=== PATIENT | female | born 1970 | race Caucasian/White ===

== ENCOUNTER 2017-02-25 13:11 | Emergency (ER) | payer OTHER ==
[~2017-02-25] VITALS: Ht 167.6 cm; Wt 81.7 kg
[2017-02-25] MEDS ORDERED: RACEPINEPHRINE 2.25% NEBU SOLN 0.5 ML VIAL INH STA (13:30)
[2017-02-25] MEDS ORDERED: DEXAMETHASONE INJ 10 MG in SYRINGE 0 ML IV STA (13:30)
[2017-02-25 13:35] VITALS: TEMP 36.9; Ht 167.6 cm; Wt 81.7 kg
--- NOTE | 2017-02-25 13:56 | DIAGNOSTIC IMAGING REPORT ---
SINGLE VIEW CHEST CLINICAL HISTORY: Cough and dyspnea. FINDINGS: An AP, portable, upright chest radiograph is obtained. No prior studies are available for comparison at the time of dictation. The cardiomediastinal silhouette is unremarkable. The lungs and pleural spaces are clear. No pneumothorax is seen. The bony thorax is grossly intact. IMPRESSION: No active disease in the chest. Electronically signed by: Ronen Stoner M.D. 02/25/2017 1:54 PM Dictated Date/Time: 02/25/2017 1:54 PM
[2017-02-25 14:03] LABS: ALLEN TEST POS (POS); ARTERIAL BLD GAS O2 SATURATION 99.4 % (90-95); ARTERIAL BLOOD GAS BASE EXCESS -0.4 mEq/L (-9-1.8); ARTERIAL BLOOD GAS HCO3 22 mmol/L (19-24); ARTERIAL BLOOD GAS PO2 164 mm/Hg (80-95); O2 ADMINISTRATION 4L
[2017-02-25] MEDS ORDERED: LEVO50TA PO (14:55)
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
[2017-02-25 19:45] VITALS: BP 110/72; PULSE 75; O2SAT 98
== END 2017-02-25 19:45 | disposition home or self-care (01) ==
LOC: C.ED 13:13 → C.EDA 19:45
DX: J98.01 Acute bronchospasm (principal); R06.02 Shortness of breath; Z98.890 Other specified postprocedural states; Z79.899 Other long term (current) drug therapy; Z88.0 Allergy status to penicillin; Z88.8 Allergy status to other drugs, medicaments and biological substances